=== PATIENT | female | born 1935 | race Hispanic/Latino ===

== ENCOUNTER → 2020-05-31 | Outpatient (CLI) | payer OTHER ==
[~2020-05-31] MED LIST: AEC81 PO; AMLO1TAB PO; CA C-5 PO; CARV12.511 PO; CLOP75TA32 PO
== END | disposition home or self-care (01) ==
LOC: RAH 10:00
PROVIDERS: ATTEND Urology
DX: R31.29 Other microscopic hematuria (principal)
CPT/HCPCS: 76770

== ENCOUNTER → 2022-10-28 | Outpatient (CLI) | payer MEDICARE ==
[~2022-10-28] MED LIST changes: +AMLO-751 PO; -AMLO1TAB PO; +REGADENOSON 0.4 MG/5 ML PF SYG IVP SCH
== END | disposition home or self-care (01) ==
LOC: RAH 11:19
PROVIDERS: ATTEND Internal Medicine Cardiovascular Disease
DX: I51.7 Cardiomegaly (principal); R06.02 Shortness of breath; R07.89 Other chest pain
CPT/HCPCS: 78452; 96374; 93017; J2785; A9500 ×2